=== PATIENT | male | born 1985 | race American Indian/Alaskan Native ===

== ENCOUNTER 2023-03-10 09:05 | Inpatient (IN) | payer BC ==
[2023-03-10 09:45] LABS: BASOPHILS ABSOLUTE AUTO 0.02 K/mm3 (0.01-0.08); BASOPHILS PERCENT AUTO 0.2 % (0.1-1.2); EOSINOPHILS ABSOLUTE AUTO 0.07 K/mm3 (0.04-0.54); EOSINOPHILS PERCENT AUTO 0.9 (0.8-7.0); HEMATOCRIT 46.9 % (40.1-51.0); HEMOGLOBIN 15.7 gm/dl (13.7-17.5); IMMATURE GRAN ABSOLUTE AUTO 0.02 K/mm3 (0.00-0.10); IMMATURE GRAN PERCENT AUTO 0.2 % (<=1.0); LYMPHOCYTES ABSOLUTE AUTO 1.31 K/mm3 (1.32-3.57); LYMPHOCYTES PERCENT AUTO 16.1 % (21.8-53.1); MEAN CORPUSCULAR HGB CONC 33.5 g/dl (32.2-35.5); MEAN CORPUSCULAR VOLUME 86.7 fl (79.0-92.2); MONOCYTES ABSOLUTE AUTO 1.04 K/mm3 (0.30-0.82); MONOCYTES PERCENT AUTO 12.8 % (5.3-12.2); NEUTROPHILS ABSOLUTE AUTO 5.68 K/mm3 (1.78-5.38); NEUTROPHILS PERCENT AUTO 69.8 % (34.0-67.9); PLATELET COUNT,PLT 332 K/mm3 (163-337); RED BLOOD CELL COUNT 5.41 M/mm3 (4.63-6.08); WHITE BLOOD CELL COUNT,WBC 8.14 K/mm3 (4.23-9.07)
[2023-03-10] MEDS ORDERED: Sodium Chloride 0.9% 10 ML Syringe FLUSH PRN (09:45)
[2023-03-10] MEDS ORDERED: HYDROmorphone 0.5 MG/0.5 ML Syringe IVPUSH ONE (09:59)
[2023-03-10] MEDS ORDERED: Albuterol/Ipratropium 3.0-0.5 MG/3 ML Neb Soln NEB ONE (09:59)
[2023-03-10 10:12] LABS: ALBUMIN 3.7 g/dl (3.4-5.0); ANION GAP 15.1 (5-15); BILIRUBIN TOTAL 3.6 mg/dL (0.2-1.0); CALCIUM 8.4 mg/dL (8.5-10.1); EST CRCL DRUG DOSING (CG) 118.53 mL/min; POTASSIUM,K 4.1 mEq/L (3.5-5.1); PROTEIN TOTAL,TP 7.5 g/dl (6.4-8.2)
[2023-03-10 11:08] LABS: APPEARANCE,URINE CLEAR (Clear); BILIRUBIN,URINE 1+ (Negative); COLOR,URINE YELLOW (Yellow); GLUCOSE,URINE NEGATIVE (Negative); KETONES,URINE NEGATIVE (Negative); LEUKOCYTE ESTERASE,URINE NEGATIVE (Negative); NITRITE,URINE NEGATIVE (Negative); OCCULT BLOOD,URINE 1+ (Negative); PROTEIN,URINE 2+ (Negative)
[2023-03-10] MEDS ORDERED: Iopamidol 612 MG/ML 100 ML Bottle IVPUSH ONE (11:12)
[2023-03-10] MEDS: Iopamidol 612 MG/ML 30 ML SDV IVPUSH ONE (11:13)
[2023-03-10] MEDS ORDERED: Sodium Chloride 0.9% 100 ML IV SCH (11:15)
[2023-03-10 11:23] LABS: BACTERIA,URINE MODERATE /hpf (FEW); MUCUS,URINE NOT SEEN /hpf (FEW); RBC,URINE 0-5 /hpf (0-5); SQUAMOUS EPITHELIAL CELLS,UR 0-5 /hpf (0-5); WBC,URINE 0-5 /hpf (0-5)
[2023-03-10] MEDS ORDERED: Furosemide 40 MG/4 ML VIAL IVPUSH ONE ×2 (11:27→14:00)
[2023-03-10] MEDS ORDERED: HYDROmorphone 0.5 MG/0.5 ML Syringe IVPUSH PRN (13:33)
[2023-03-10] MEDS ORDERED: Docusate Sodium 100 MG Cap PO PRN (13:33)
[2023-03-10] MEDS ORDERED: Albuterol/Ipratropium 3.0-0.5 MG/3 ML Neb Soln NEB PRN (13:33)
[2023-03-10] MEDS ORDERED: Acetaminophen 325 MG Tab PO PRN (13:33)
[2023-03-10] MEDS ORDERED: oxyCODONE 5 MG Tab PO PRN (13:33)
[2023-03-10] MEDS ORDERED: Ondansetron 4 MG/2 ML SDV IV PRN (13:33)
[2023-03-10] MEDS ORDERED: Albuterol 0.083% 2.5 MG/3 ML Neb Soln NEB PRN (13:33)
[2023-03-10 14:16] LABS: HEMOGLOBIN A1C 6.2 %
[2023-03-10 14:35] LABS: BARBITURATE SCREEN,URINE NEGATIVE (CUTOFF=200); BENZODIAZEPINES SCREEN,URINE NEGATIVE (CUTOFF=150); BUPRENORPHINE SCREEN,URINE NEGATIVE (CUTOFF=10); METHADONE SCREEN, URINE NEGATIVE (CUT0FF=200); METHAMPHETAMINES SCREEN, URINE NEGATIVE (CUTOFF=500); OXYCODONE SCREEN,URINE NEGATIVE (CUT0FF=100); PROPOXYPHENE SCREEN,URINE NEGATIVE (CUTOFF=300); THC SCREEN,URINE 20 NG/ML NEGATIVE (CUTOFF=50)
[2023-03-10 14:38] LABS: AMPHETAMINES SCREEN, URINE NEGATIVE (CUTOFF=500)
[2023-03-10] MEDS ORDERED: Lidocaine 4% 1 each Patch TOP PRN (14:51)
[2023-03-10] MEDS: Enoxaparin 40 MG/0.4 ML Syringe SUBCUT SCH (17:22)
[2023-03-10] MEDS: Nicotine 14 MG/24 Hr Patch TRDERM SCH (17:22)
[2023-03-11 06:18] LABS: A/G RATIO 1.1 (1-2); ALBUMIN 3.5 g/dl (3.4-5.0); ANION GAP 14.1 (5-15); BILIRUBIN TOTAL 1.9 mg/dL (0.2-1.0); BUN/CREATININE RATIO 19.2 (14-18); CALCIUM 8.8 mg/dL (8.5-10.1); CREATININE 1.2 mg/dL (0.7-1.3); EST CRCL DRUG DOSING (CG) 98.78 mL/min; MAGNESIUM 1.8 mg/dL (1.8-2.4); POTASSIUM,K 4.1 mEq/L (3.5-5.1); PROTEIN TOTAL,TP 6.8 g/dl (6.4-8.2)
[2023-03-11] MEDS: Furosemide 40 MG/4 ML VIAL IVPUSH SCH ×2 (06:22→15:03)
[2023-03-11 06:25] LABS: BASOPHILS ABSOLUTE AUTO 0.02 K/mm3 (0.01-0.08); BASOPHILS PERCENT AUTO 0.3 % (0.1-1.2); EOSINOPHILS ABSOLUTE AUTO 0.13 K/mm3 (0.04-0.54); EOSINOPHILS PERCENT AUTO 1.8 (0.8-7.0); HEMATOCRIT 48.2 % (40.1-51.0); HEMOGLOBIN 15.5 gm/dl (13.7-17.5); IMMATURE GRAN ABSOLUTE AUTO 0.02 K/mm3 (0.00-0.10); IMMATURE GRAN PERCENT AUTO 0.3 % (<=1.0); LYMPHOCYTES ABSOLUTE AUTO 1.24 K/mm3 (1.32-3.57); LYMPHOCYTES PERCENT AUTO 16.9 % (21.8-53.1); MEAN CORPUSCULAR HEMOGLOBIN 28.8 pg (25.7-32.2); MEAN CORPUSCULAR HGB CONC 32.2 g/dl (32.2-35.5); MEAN CORPUSCULAR VOLUME 89.4 fl (79.0-92.2); MEAN PLATELET VOLUME 9.6 fl (9.4-12.3); MONOCYTES ABSOLUTE AUTO 0.87 K/mm3 (0.30-0.82); MONOCYTES PERCENT AUTO 11.8 % (5.3-12.2); NEUTROPHILS ABSOLUTE AUTO 5.07 K/mm3 (1.78-5.38); NEUTROPHILS PERCENT AUTO 68.9 % (34.0-67.9); PLATELET COUNT,PLT 307 K/mm3 (163-337); RED BLOOD CELL COUNT 5.39 M/mm3 (4.63-6.08)
[2023-03-11 06:50] LABS: WHITE BLOOD CELL COUNT,WBC 7.35 K/mm3 (4.23-9.07)
[2023-03-11] MEDS: Nicotine 14 MG/24 Hr Patch TRDERM SCH (08:46)
[2023-03-11] MEDS: Enoxaparin 40 MG/0.4 ML Syringe SUBCUT SCH (08:47)
[2023-03-11] MEDS: Metoprolol Tartrate 25 MG Tab PO SCH ×2 (09:42→20:51)
[2023-03-11] MEDS: Sacubitril/Valsartan 1 EACH Tablet PO SCH ×2 (11:51→20:58)
[2023-03-11] MEDS: Empagliflozin 10 MG Tab PO SCH (11:51)
[2023-03-12] MEDS: Furosemide 40 MG/4 ML VIAL IVPUSH SCH ×2 (05:51→14:39)
[2023-03-12 06:36] LABS: BASOPHILS ABSOLUTE AUTO 0.02 K/mm3 (0.01-0.08); BASOPHILS PERCENT AUTO 0.3 % (0.1-1.2); EOSINOPHILS PERCENT AUTO 2.7 (0.8-7.0); HEMATOCRIT 52.4 % (40.1-51.0); HEMOGLOBIN 16.4 gm/dl (13.7-17.5); IMMATURE GRAN ABSOLUTE AUTO 0.02 K/mm3 (0.00-0.10); IMMATURE GRAN PERCENT AUTO 0.3 % (<=1.0); LYMPHOCYTES PERCENT AUTO 17.3 % (21.8-53.1); MEAN CORPUSCULAR HEMOGLOBIN 28.6 pg (25.7-32.2); MEAN CORPUSCULAR HGB CONC 31.3 g/dl (32.2-35.5); MEAN CORPUSCULAR VOLUME 91.3 fl (79.0-92.2); MEAN PLATELET VOLUME 9.1 fl (9.4-12.3); MONOCYTES ABSOLUTE AUTO 0.77 K/mm3 (0.30-0.82); MONOCYTES PERCENT AUTO 10.2 % (5.3-12.2); NEUTROPHILS ABSOLUTE AUTO 5.21 K/mm3 (1.78-5.38); NEUTROPHILS PERCENT AUTO 69.2 % (34.0-67.9); PLATELET COUNT,PLT 349 K/mm3 (163-337); RED BLOOD CELL COUNT 5.74 M/mm3 (4.63-6.08); WHITE BLOOD CELL COUNT,WBC 7.52 K/mm3 (4.23-9.07)
[2023-03-12 06:52] LABS: ALBUMIN 3.6 g/dl (3.4-5.0); BILIRUBIN TOTAL 1.3 mg/dL (0.2-1.0); BUN/CREATININE RATIO 13.6 (14-18); CALCIUM 8.7 mg/dL (8.5-10.1); CREATININE 1.1 mg/dL (0.7-1.3); EST CRCL DRUG DOSING (CG) 107.76 mL/min; MAGNESIUM 2.1 mg/dL (1.8-2.4); PROTEIN TOTAL,TP 7.2 g/dl (6.4-8.2)
[2023-03-12 07:02] LABS: ANION GAP 9.9 (5-15); POTASSIUM,K 3.9 mEq/L (3.5-5.1)
[2023-03-12] MEDS: Enoxaparin 40 MG/0.4 ML Syringe SUBCUT SCH (09:03)
[2023-03-12] MEDS: Sacubitril/Valsartan 1 EACH Tablet PO SCH ×2 (09:03→21:34)
[2023-03-12] MEDS: Empagliflozin 10 MG Tab PO SCH (09:04)
[2023-03-12] MEDS: Metoprolol Succinate 25 MG Tab.ER PO SCH (09:04)
[2023-03-12] MEDS: Nicotine 14 MG/24 Hr Patch TRDERM SCH (09:07)
[2023-03-12 14:26] LABS: BICARBONATE,ARTERIAL 29.4 meq/L (22.0-26.0); O2 SATURATION ARTERIAL 92.2 % (96.0-97.0); PCO2 ARTERIAL 48.2 mmHg (35.0-45.0)
[2023-03-13 06:11] LABS: BASOPHILS ABSOLUTE AUTO 0.02 K/mm3 (0.01-0.08); BASOPHILS PERCENT AUTO 0.3 % (0.1-1.2); EOSINOPHILS ABSOLUTE AUTO 0.38 K/mm3 (0.04-0.54); HEMATOCRIT 54.3 % (40.1-51.0); HEMOGLOBIN 16.8 gm/dl (13.7-17.5); IMMATURE GRAN ABSOLUTE AUTO 0.01 K/mm3 (0.00-0.10); IMMATURE GRAN PERCENT AUTO 0.1 % (<=1.0); LYMPHOCYTES ABSOLUTE AUTO 1.36 K/mm3 (1.32-3.57); LYMPHOCYTES PERCENT AUTO 17.7 % (21.8-53.1); MEAN CORPUSCULAR HEMOGLOBIN 28.5 pg (25.7-32.2); MEAN CORPUSCULAR HGB CONC 30.9 g/dl (32.2-35.5); MEAN PLATELET VOLUME 9.3 fl (9.4-12.3); MONOCYTES ABSOLUTE AUTO 0.85 K/mm3 (0.30-0.82); MONOCYTES PERCENT AUTO 11.1 % (5.3-12.2); NEUTROPHILS ABSOLUTE AUTO 5.05 K/mm3 (1.78-5.38); NEUTROPHILS PERCENT AUTO 65.8 % (34.0-67.9); PLATELET COUNT,PLT 318 K/mm3 (163-337); WHITE BLOOD CELL COUNT,WBC 7.67 K/mm3 (4.23-9.07)
[2023-03-13] MEDS: Furosemide 40 MG/4 ML VIAL IVPUSH SCH ×2 (06:13→13:20)
[2023-03-13 06:24] LABS: ALBUMIN 3.4 g/dl (3.4-5.0); ANION GAP 11.8 (5-15); BILIRUBIN TOTAL 1.2 mg/dL (0.2-1.0); BUN/CREATININE RATIO 8.2 (14-18); CALCIUM 8.8 mg/dL (8.5-10.1); CREATININE 1.1 mg/dL (0.7-1.3); EST CRCL DRUG DOSING (CG) 107.76 mL/min; MAGNESIUM 1.9 mg/dL (1.8-2.4); POTASSIUM,K 3.8 mEq/L (3.5-5.1); PROTEIN TOTAL,TP 6.9 g/dl (6.4-8.2)
[2023-03-13] MEDS: Empagliflozin 10 MG Tab PO SCH (10:04)
[2023-03-13] MEDS: Nicotine 14 MG/24 Hr Patch TRDERM SCH (10:04)
[2023-03-13] MEDS: Sacubitril/Valsartan 1 EACH Tablet PO SCH ×2 (10:05→20:41)
[2023-03-13] MEDS: Metoprolol Succinate 25 MG Tab.ER PO SCH (10:05)
[2023-03-13] MEDS: Enoxaparin 40 MG/0.4 ML Syringe SUBCUT SCH (10:06)
[2023-03-13] MEDS ORDERED: Metoprolol Succinate 25 MG Tab.ER PO ONE (12:09)
[2023-03-14] MEDS: Furosemide 40 MG/4 ML VIAL IVPUSH SCH (05:47)
[2023-03-14 06:32] LABS: BASOPHILS ABSOLUTE AUTO 0.03 K/mm3 (0.01-0.08); BASOPHILS PERCENT AUTO 0.4 % (0.1-1.2); EOSINOPHILS ABSOLUTE AUTO 0.45 K/mm3 (0.04-0.54); EOSINOPHILS PERCENT AUTO 6.1 (0.8-7.0); HEMATOCRIT 56.5 % (40.1-51.0); HEMOGLOBIN 17.9 gm/dl (13.7-17.5); IMMATURE GRAN ABSOLUTE AUTO 0.01 K/mm3 (0.00-0.10); IMMATURE GRAN PERCENT AUTO 0.1 % (<=1.0); LYMPHOCYTES ABSOLUTE AUTO 1.45 K/mm3 (1.32-3.57); LYMPHOCYTES PERCENT AUTO 19.6 % (21.8-53.1); MEAN CORPUSCULAR HEMOGLOBIN 28.8 pg (25.7-32.2); MEAN CORPUSCULAR HGB CONC 31.7 g/dl (32.2-35.5); MEAN PLATELET VOLUME 9.1 fl (9.4-12.3); MONOCYTES ABSOLUTE AUTO 0.66 K/mm3 (0.30-0.82); MONOCYTES PERCENT AUTO 8.9 % (5.3-12.2); NEUTROPHILS ABSOLUTE AUTO 4.81 K/mm3 (1.78-5.38); NEUTROPHILS PERCENT AUTO 64.9 % (34.0-67.9); PLATELET COUNT,PLT 363 K/mm3 (163-337); RED BLOOD CELL COUNT 6.21 M/mm3 (4.63-6.08); WHITE BLOOD CELL COUNT,WBC 7.41 K/mm3 (4.23-9.07)
[2023-03-14 06:58] LABS: ALBUMIN 3.5 g/dl (3.4-5.0); ANION GAP 12.9 (5-15); BILIRUBIN TOTAL 1.3 mg/dL (0.2-1.0); CALCIUM 9.1 mg/dL (8.5-10.1); EST CRCL DRUG DOSING (CG) 118.53 mL/min; MAGNESIUM 1.7 mg/dL (1.8-2.4); POTASSIUM,K 3.9 mEq/L (3.5-5.1); PROTEIN TOTAL,TP 7.2 g/dl (6.4-8.2)
[2023-03-14] MEDS ORDERED: Magnesium Sulfate/Water 2 GM in Premix Bag 1 BAG IV ONE (08:00)
[2023-03-14] MEDS: Enoxaparin 40 MG/0.4 ML Syringe SUBCUT SCH (08:27)
[2023-03-14] MEDS: Empagliflozin 10 MG Tab PO SCH (08:28)
[2023-03-14] MEDS: Nicotine 14 MG/24 Hr Patch TRDERM SCH (08:28)
[2023-03-14] MEDS: Sacubitril/Valsartan 1 EACH Tablet PO SCH (08:28)
[2023-03-14] MEDS ORDERED: Metoprolol Succinate 50 MG Tab.ER PO SCH (09:00)
[2023-03-14] MEDS ORDERED: oxyCODONE 5 MG Tab PO PRN (14:16)
== END 2023-03-14 14:30 | disposition home or self-care (01) | DRG 194 ==
LOC: JD.ED 09:05 → JD.MS 13:22 → OBSVTOIN 13:22 → JD.OB 03-11 17:42 → JD.MS 03-12 10:09
PROVIDERS: ADMIT Hospitalist; ATTEND Hospitalist
DX: I50.21 Acute systolic (congestive) heart failure (principal); R09.02 Hypoxemia; F17.210 Nicotine dependence, cigarettes, uncomplicated; R73.9 Hyperglycemia, unspecified; S22.31XA Fracture of one rib, right side, initial encounter for closed fracture; I31.39 Other pericardial effusion (noninflammatory); I08.1 Rheumatic disorders of both mitral and tricuspid valves; I44.7 Left bundle-branch block, unspecified; R60.1 Generalized edema; N20.0 Calculus of kidney; R73.03 Prediabetes; I42.8 Other cardiomyopathies
CPT/HCPCS: 36415; 36600; 71045; 71045-26; 71260; 71260-26; 74177; 74177-26; 80053; 80061; 80306; 81001; 82803; 83036; 83605; 83735; 83880; 84484; 85025; 87040; 93005; 93010; 93307; 93970; 93970-26; 94640; 94660; 94761; 94762; 96372; 96374; 96375; 96376; 99223; 99232; 99233; 99239; 99285; 99285-25; A9270-GY; G0378; J1170; J1650; J1940; J3475; J3490; J7620-GY; Q9967

== ENCOUNTER 2023-08-27 09:32 | Emergency (ER) | payer BC ==
[2023-08-27] MEDS ORDERED: Sodium Chloride 0.9% 10 ML Syringe FLUSH PRN (09:43)
[2023-08-27] MEDS ORDERED: Aspirin 81 MG Tab.Chew PO ONE (09:43)
[2023-08-27 10:04] LABS: BASOPHILS PERCENT AUTO 0.3 % (0.0-1.0); EOSINOPHILS ABSOLUTE AUTO 0.1 K/mm3 (0.0-0.4); EOSINOPHILS PERCENT AUTO 1.9 % (0.0-6.0); HEMATOCRIT 52.9 % (42.0-52.0); IMMATURE GRAN ABSOLUTE AUTO 0.01 K/mm3 (0.00-0.05); IMMATURE GRAN PERCENT AUTO 0.1 % (0.0-0.4); LYMPHOCYTES ABSOLUTE AUTO 1.6 K/mm3 (1.0-4.8); LYMPHOCYTES PERCENT AUTO 22.9 % (24.0-44.0); MEAN CORPUSCULAR HEMOGLOBIN 29.9 pg (28.0-32.0); MEAN CORPUSCULAR HGB CONC 32.1 g/dl (32.0-36.0); MEAN CORPUSCULAR VOLUME 93.1 fl (83.0-99.0); MONOCYTES ABSOLUTE AUTO 0.5 K/mm3 (0.0-0.8); MONOCYTES PERCENT AUTO 6.4 % (0.0-8.0); NEUTROPHILS ABSOLUTE AUTO 4.8 K/mm3 (1.8-7.7); NEUTROPHILS PERCENT AUTO 68.4 % (41.0-71.0); PLATELET COUNT,PLT 282 K/mm3 (150-400); RED BLOOD CELL COUNT 5.68 M/mm3 (4.52-5.90)
[2023-08-27 10:30] LABS: ALBUMIN 3.9 g/dl (3.4-5.0); ANION GAP 15.3 (5-15); BILIRUBIN TOTAL 1.6 mg/dL (0.2-1.0); CREATININE 1.2 mg/dL (0.7-1.3); EST CRCL DRUG DOSING (CG) 100.46 mL/min; POTASSIUM,K 4.3 mEq/L (3.5-5.1); PROTEIN TOTAL,TP 7.7 g/dl (6.4-8.2)
[2023-08-27] MEDS ORDERED: Bumetanide 1 MG/4 ML MDV IVPUSH ONE (10:47)
[2023-08-27 10:49] LABS: APPEARANCE,URINE CLEAR (Clear); BILIRUBIN,URINE NEGATIVE (Negative); COLOR,URINE YELLOW (Yellow); GLUCOSE,URINE 2+ (Negative); KETONES,URINE NEGATIVE (Negative); LEUKOCYTE ESTERASE,URINE NEGATIVE (Negative); NITRITE,URINE NEGATIVE (Negative); OCCULT BLOOD,URINE 1+ (Negative); PH,URINE 6.5 (5.0-8.0); PROTEIN,URINE 2+ (Negative)
[2023-08-27 10:51] LABS: CORONAVIRUS COVID-19 NAA NEGATIVE (NEGATIVE); INFLUENZA A NAA NEGATIVE (NEGATIVE); RESPIRATORY SYNCYTIAL VIR NAA NEGATIVE (NEGATIVE)
[2023-08-27 11:19] LABS: BACTERIA,URINE FEW /hpf (FEW); MUCUS,URINE NOT SEEN /hpf (FEW); RBC,URINE 0-5 /hpf (0-5); SQUAMOUS EPITHELIAL CELLS,UR 0-5 /hpf (0-5); WBC,URINE 0-5 /hpf (0-5)
== END 2023-08-27 14:17 | disposition home or self-care (01) ==
LOC: JD.ED 09:32
DX: I50.43 Acute on chronic combined systolic (congestive) and diastolic (congestive) heart failure (principal); I51.7 Cardiomegaly; Z87.891 Personal history of nicotine dependence; Z20.822 Contact with and (suspected) exposure to COVID-19; Z79.899 Other long term (current) drug therapy
CPT/HCPCS: 0241U; 36415; 71046; 71046-26; 80053; 81001; 83735; 83880; 84484; 85025; 93005; 96374; 99285-25; J3490

== ENCOUNTER 2023-09-25 07:12 | Emergency (ER) | payer BC ==
[2023-09-25] MEDS ORDERED: Sodium Chloride 0.9% 10 ML Syringe FLUSH PRN (07:32)
[2023-09-25] MEDS ORDERED: Furosemide 40 MG/4 ML VIAL IVPUSH ONE (07:47)
[2023-09-25 07:52] LABS: BASOPHILS PERCENT AUTO 0.4 % (0.0-1.0); EOSINOPHILS ABSOLUTE AUTO 0.2 K/mm3 (0.0-0.4); HEMATOCRIT 51.8 % (42.0-52.0); HEMOGLOBIN 16.6 gm/dl (14.0-18.0); IMMATURE GRAN ABSOLUTE AUTO 0.02 K/mm3 (0.00-0.05); IMMATURE GRAN PERCENT AUTO 0.3 % (0.0-0.4); LYMPHOCYTES ABSOLUTE AUTO 1.3 K/mm3 (1.0-4.8); LYMPHOCYTES PERCENT AUTO 17.4 % (24.0-44.0); MEAN CORPUSCULAR VOLUME 90.6 fl (83.0-99.0); MEAN PLATELET VOLUME 8.9 fl (9.4-12.4); MONOCYTES ABSOLUTE AUTO 0.6 K/mm3 (0.0-0.8); NEUTROPHILS ABSOLUTE AUTO 5.3 K/mm3 (1.8-7.7); NEUTROPHILS PERCENT AUTO 71.9 % (41.0-71.0); PLATELET COUNT,PLT 271 K/mm3 (150-400); RED BLOOD CELL COUNT 5.72 M/mm3 (4.52-5.90); WHITE BLOOD CELL COUNT,WBC 7.41 K/mm3 (3.9-11.3)
[2023-09-25 08:25] LABS: A/G RATIO 0.8 (1-2); ALBUMIN 3.3 g/dl (3.4-5.0); CALCIUM 8.7 mg/dL (8.5-10.1); EST CRCL DRUG DOSING (CG) 117.36 mL/min; PROTEIN TOTAL,TP 7.4 g/dl (6.4-8.2)
== END 2023-09-25 10:43 | disposition home or self-care (01) ==
LOC: JD.ED 07:12
DX: I50.43 Acute on chronic combined systolic (congestive) and diastolic (congestive) heart failure (principal); R60.9 Edema, unspecified; Z79.899 Other long term (current) drug therapy
CPT/HCPCS: 36415; 71045; 80053; 83880; 84484; 85025; 93005; 96374; 99284; J1940; J3490